=== PATIENT | male | born 1975 | race Caucasian/White ===

== ENCOUNTER 2019-07-25 10:39 | Emergency (ER) | payer MEDICAID ==
[2019-07-25 10:51] VITALS: BP 157/94
--- NOTE | 2019-07-25 11:27 | XRAY Report ---
Reason: r shoulder pain Procedure Date: 07/25/2019 Accession Number: [id number] / [id number] Procedure: XR - Shoulder 3 View RT CPT Code: FULL RESULT: EXAM: RIGHT SHOULDER RADIOGRAPHY EXAM DATE: 07/25/2019 11:14 AM. CLINICAL HISTORY: R shoulder pain. COMPARISON: SHOULDER 3 VIEW LT 07/27/2013 10:13 AM. TECHNIQUE: 3 views. FINDINGS: Bones: Fracture of the distal clavicle with nearly one shaft width superior displacement of the distal fragment relative to the proximal. No gross acromioclavicular joint space malalignment. No other fractures or acute bone lesions. There is a small presumed benign bone island within the humeral head. Joints: The glenohumeral and acromioclavicular joints are normal. Soft tissues: The visualized hemithorax is unremarkable. No soft tissue swelling. IMPRESSION: Displaced, distal clavicular fracture, as above. RADIA
--- NOTE | 2019-07-25 11:32 | ED Physician Documentation ---
PD HPI UPPER EXT INJURY - Stated complaint Stated Complaint: RT SHOULDER PX - Chief complaint Chief Complaint: Ext Problem - History obtained from History obtained from: Patient - History of Present Illness Location: Right, Clavicle, Shoulder Type of injury: Fall Where injury occurred: Home Timing - onset: Yesterday Timing - details: Abrupt onset (he fell to right shoulder and has pain at end of clavicle, worse with ROM of the arm.) Improved by: Rest Worsened by: Moving Associated symptoms: No: Weakness, Numbness Recently seen: Not recently seen Review of Systems Skin: denies: Abrasion (s), Laceration (s) Neurologic: denies: Focal weakness, Numbness, Altered mental status, Head injury PD PAST MEDICAL HISTORY - Past Medical History Cardiovascular: None Respiratory: None Endocrine/Autoimmune: None Musculoskeletal: None Derm: Eczema - Past Surgical History Past Surgical History: Yes General: Appendectomy - Present Medications Home Medications: Ambulatory Orders Medication Instructions Recorded Confirmed Hydrocodone/Acetaminophen [[place] 1 each PO Q6H PRN #15 tablet 07/25/19 5-325 Tablet] Naproxen 500 mg PO BID #20 tablet 07/25/19 - Allergies Allergies/Adverse Reactions: Allergies Allergy/AdvReac Type Severity Reaction Status Date / Time No Known Drug Allergies Allergy Verified 05/27/16 07:44 - Social History Does the pt smoke?: No Smoking Status: Never smoker Does the pt drink ETOH?: Yes Does the pt have substance abuse?: No - Immunizations Immunizations are current?: Yes PD ED PE NORMAL - Vitals Vital signs reviewed: Yes - General General: Alert and oriented X 3, No acute distress, Well developed/nourished - HEENT HEENT: Atraumatic - Neck Neck: Supple, no meningeal sign, No bony TTP, No adenopathy - Derm Derm: Normal color, Warm and dry - Extremities Extremities: Other (distal clavicle right side with tenderness and swelling. Limited ROM of the shoulder due to pain. No skin lac. ) - Neuro Neuro: Alert and oriented X 3, No motor deficit, No sensory deficit Results - Vitals Vitals: Vital Signs - 24 hr 07/25/19 10:42 Temperature 36.7 C Heart Rate 80 Respiratory 18 Rate Blood Pressure 157/94 H O2 Saturation 96 Oxygen O2 Source Room air - Rads (name of study) right shoulder Radiology: Prelim report reviewed (displaced distal clavicle fracture. ), EMP read contemporaneously, See rad report PD MEDICAL DECISION MAKING - ED course Complexity details: reviewed results, considered differential, d/w patient Departure - Departure Disposition: 01 Home, Self Care Clinical Impression: Closed fracture of distal clavicle Qualifiers: Encounter type: initial encounter Fracture alignment: displaced Laterality: right Qualified Code(s): S42.031A - Displaced fracture of lateral end of right clavicle, initial encounter for closed fracture Condition: Stable Record reviewed to determine appropriate education?: Yes Instructions: ED Fx Clavicle Follow-Up: Weston Mai MD [Provider Admit Priv/Credential] - Prescriptions: Hydrocodone/Acetaminophen [[place] 5-325 Tablet] 1 each PO Q6H PRN #15 tablet PRN Reason: Pain Naproxen 500 mg PO BID #20 tablet Comments: Use a sling for comfort of the shoulder with periodic gentle range of motion so it does not stiffen up. No overhead reaching, push pull, heavy lifting for 3 to 4 weeks. The pain will decrease over several days from the initial injury and then it will mosquera together and stop clicking and popping after about 1-1/2 weeks. He will take about a month to heal up. Follow-up with orthopedics in about a week, call tomorrow for an appointment to ensure its healing well enough with this treatment. Typically is sitting alone and time for healing is adequate. Use some anti-inflammatory such as naproxen twice daily for the next 7 to 10 days. Add Tylenol or hydrocodone if needed for pain. I would anticipate needing more pain medicine just in the short-term. Discharge Date/Time: 07/25/19 12:27
[2019-07-25] MEDS ORDERED: IBUPROFEN 600 MG TABLET PO STA (11:53)
[2019-07-25] MEDS ORDERED: HYDROcod/ACETAM 5/325 MG TABLET PO STA (11:53)
== END 2019-07-25 12:27 | disposition home or self-care (01) ==
LOC: ED 10:39
DX: S42.031A Displaced fracture of lateral end of right clavicle, initial encounter for closed fracture (principal); V00.131A Fall from skateboard, initial encounter; Y93.51 Activity, roller skating (inline) and skateboarding; Y92.009 Unspecified place in unspecified non-institutional (private) residence as the place of occurrence of the external cause
CPT/HCPCS: 73030; 99283; A9270

== ENCOUNTER 2021-11-13 16:16 | Emergency (ER) | payer MEDICAID ==
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
--- NOTE | 2021-11-13 18:05 | XRAY Report ---
PROCEDURE: Hand 3 View RT, x-ray INDICATIONS: Trauma TECHNIQUE: 3 views of the hand(s) acquired. COMPARISON: None FINDINGS: Bones: Transverse fractures through the fourth and fifth distal metatarsals with volar angulation of the distal fracture fragment. Old healed fracture noted deep before meals second metatarsal. Soft tissues: No suspicious soft tissue calcifications. IMPRESSION: Angulated fourth and fifth distal metatarsal fractures Old healed second metatarsal fracture Reviewed by: Lewis Ford MD on 11/13/2021 5:04 PM AK Approved by: Lewis Ford MD on 11/13/2021 5:04 PM AKST Station ID: [id number]
[2021-11-13 18:10] VITALS: BP 135/97
== END 2021-11-13 18:13 | disposition home or self-care (01) ==
LOC: ED 16:16
DX: S92.341A Displaced fracture of fourth metatarsal bone, right foot, initial encounter for closed fracture (principal); S92.351A Displaced fracture of fifth metatarsal bone, right foot, initial encounter for closed fracture; V19.9XXA Pedal cyclist (driver) (passenger) injured in unspecified traffic accident, initial encounter; Y93.55 Activity, bike riding
CPT/HCPCS: 99283

== ENCOUNTER 2023-01-18 14:07 | Outpatient (CLI) | payer MEDICAID | END 2023-01-18 23:59 | disposition critical access hospital (66) | LOC: EMS 14:07 | DX: S09.90XA Unspecified injury of head, initial encounter (principal); R41.82 Altered mental status, unspecified; W10.9XXA Fall (on) (from) unspecified stairs and steps, initial encounter | CPT/HCPCS: A0425; A0429 ==

== ENCOUNTER 2023-01-18 14:28 | Emergency (ER) | payer MEDICAID ==
[2023-01-18] MEDS ORDERED: TETANUS/DIPHTHERIA/PERTUSSIS 0.5 ML SYRINGE IM ONE (14:38)
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
--- NOTE | 2023-01-18 16:24 | CT Report ---
PROCEDURE: HEAD WO INDICATIONS: head injury/etoh TECHNIQUE: Noncontrast 4.5 mm thick angled axial sections acquired from the foramen magnum to the vertex. For r adiation dose reduction, the following was used: automated exposure control, adjustment of mA and/or kV according to patient size. COMPARISON: 04/29/2016, 02/24/2016. Correlation is also made with the coming cervical spine CT, 01/19/20. FINDINGS: Image quality: There is streak artifact seen through the skull base. CSF spaces: Basal cisterns a re patent. No extra-axial fluid collections. Ventricles are normal in size and shape. Brain: No midline shift. No intracranial masses or hemorrhage. Briseno-white matter interface is norm al. Skull and face: Calvarium and visualized facial bones are intact, without suspicious lesions. Sinuses: Moderate mucosal thickening is seen within the ethmoid air cells and the visualized maxillar y sinuses. No significant abnormal fluid can be seen within the mastoid air cells. IMPRESSION: No significant intracranial abnormality is seen. Paranasal sinus disease noted. Reviewed by: Dario Dominguez MD on 01/18/2023 3:23 PM JAMES Approved by: Dario Dominguez MD on 01/18/2023 3:23 PM JAMES Station ID: [id number]
--- NOTE | 2023-01-18 16:25 | CT Report ---
PROCEDURE: CERVICAL SPINE WO INDICATIONS: headinjury/etoh TECHNIQUE: Noncontrast 3 mm thick sections acquired from the skull base to the T4 level. Sagittal and coronal r eformats were then constructed. For radiation dose reduction, the following was used: automated exp osure control, adjustment of mA and/or kV according to patient size. COMPARISON: Correlation is made with the accompanying head CT, 01/18/2023 FINDINGS: Image quality: Motion artifact is noted. Bones: No fractures or dislocations. Visualized superior ribs are intact. Soft tissues: Prevertebral soft tissues are normal in thickness. No paravertebral hematomas. No ap ical pneumothoraces. IMPRESSION: No fracture. Reviewed by: Dario Dominguez MD on 01/18/2023 3:23 PM JAMES Approved by: Dario Dominguez MD on 01/18/2023 3:23 PM JAMES Station ID: [id number]
[2023-01-18 17:29] VITALS: BP 110/60
== END 2023-01-18 17:19 | disposition home or self-care (01) ==
LOC: EDUNIT# → ED 14:28
DX: S01.01XA Laceration without foreign body of scalp, initial encounter (principal); W19.XXXA Unspecified fall, initial encounter; Z23 Encounter for immunization; Z71.85 Encounter for immunization safety counseling
CPT/HCPCS: 12004; 36415; 90471; 99284

== ENCOUNTER 2023-06-13 23:20 | Outpatient (CLI) | payer MEDICAID | END 2023-06-13 23:59 | disposition critical access hospital (66) | LOC: EMS 23:20 | DX: R56.9 Unspecified convulsions (principal) | CPT/HCPCS: A0425; A0429; A0999 ==

== ENCOUNTER 2023-06-13 23:40 | Emergency (ER) | payer MEDICAID ==
[2023-06-14 00:12] LABS: BASOPHILS # (AUTO) 0.1 10^3/uL (0.0-0.1); EOSINOPHILS # (AUTO) 0.3 10^3/uL (0.0-0.7); EOSINOPHILS % (AUTO) 5.4 %; HCT - HEMATOCRIT 42.1 % (42.0-52.0); HGB - HEMOGLOBIN 14.5 g/dL (14.0-18.0); LYMPHOCYTES % (AUTO) 20.9 %; MEAN CORPUSCULAR HEMOGLOBIN 33.4 pg (27.0-31.0); MEAN CORPUSCULAR HGB CONC 34.4 g/dL (32.0-36.0); MEAN PLATELET VOLUME 10.5 fL (7.4-11.4); MONOCYTES # (AUTO) 0.7 10^3/uL (0.0-1.0); MONOCYTES % (AUTO) 14.1 %; NEUTROPHILS # (AUTO) 2.9 10^3/uL (1.5-6.6); NEUTROPHILS % (AUTO) 58.2 %; PLT - PLATELET COUNT 114 10^3/uL (130-450); RED BLOOD COUNT 4.34 10^6/uL (4.70-6.10); RED CELL DISTRIBUTION WIDTH 14.6 % (12.0-15.0)
[2023-06-14 00:51] LABS: ALBUMIN 4.3 g/dL (3.2-5.5); ALBUMIN/GLOBULIN RATIO 1.5 (1.0-2.2); BILIRUBIN,TOTAL 1.4 mg/dL (0.2-1.0); CALCIUM 9.4 mg/dL (8.5-10.3); CREATININE 0.6 mg/dL (0.6-1.3); POTASSIUM 3.6 mmol/L (3.5-4.5); TOTAL PROTEIN 7.1 g/dL (6.4-8.9)
--- NOTE | 2023-06-14 02:28 | ED Physician Documentation ---
PD HPI SEIZURE - Stated complaint Stated Complaint: SEIZURE/ETOH - Chief complaint Chief Complaint: Neuro - History obtained from History obtained from: Patient, Friend - Additional information Additional information: BIBA. HPI from patient, friend (in ED at bedside), and EMS. Patient had a seizure tonight, approximately 20-30 minutes EXTENSION EDGER, lasted 2-3 minutes. He says he had been having visual flashes, episodically, over past 1-2 days. earlier this evening, he was having visual pulsations of various colors when he lost consciousness with no other warning, next aware that EMS was transporting him to ED. He says he has never had a seizure before. Girlfriend says she witnessed the event. She says she did not fall, did not witness any injury. She says he suddenly exhibited full-body stiffness, eyes "rolled back", and his arms were stiff and above his head. She did not witness any clonic jerking movements. She says this lasted up to a minute , followed by patient suddenly being limp and quiet, snoring loudly. He was unresponsive during the stiff phase as well as 10-15 minutes of the phase when he appeared to be sleeping heavily; he eventually and gradually became awake, alert, responsive, and by the time he gets to the ED, he is AAOx3. Patient tells me he drinks alcohol on a daily basis, typically 10-12 beers per day. He has not drank alcohol since yesterday. Review of Systems Constitutional: reports: Reviewed and negative Cardiac: reports: Reviewed and negative Respiratory: reports: Reviewed and negative GI: reports: Reviewed and negative Neurologic: reports: Seizure. denies: Generalized weakness, Focal weakness, Numbness, Confused, Altered mental status, Headache, Head injury PD PAST MEDICAL HISTORY - Past Medical History Past Medical History: Yes Cardiovascular: None Respiratory: None Neuro: None, Other Endocrine/Autoimmune: None GI: None : None HEENT: None Psych: None Musculoskeletal: None Derm: Eczema Other Past Medical History: NEW ONSET SEIZURES. ETOH ABUSE - Past Surgical History Past Surgical History: Yes General: Appendectomy - Present Medications Home Medications: Ambulatory Orders Medication Instructions Recorded Confirmed Acetaminophen [Tylenol] 650 mg PO Q6H PRN #30 tablet 11/13/21 Ibuprofen [Motrin] 800 mg PO Q8H PRN #30 tablet 11/13/21 Oxycodone HCl [Roxicodone] 5 mg PO Q6HR #10 tablet 11/13/21 - Allergies Allergies/Adverse Reactions: Allergies Allergy/AdvReac Type Severity Reaction Status Date / Time No Known Drug Allergies Allergy Verified 01/18/23 14:39 - Social History Does the pt smoke?: No Smoking Status: Never smoker Does the pt drink ETOH?: Yes Does the pt have substance abuse?: No Substance Use and Type: Marijuana - Immunizations Immunizations are current?: Yes - POLST Patient has POLST: No PD ED PE NORMAL - Vitals Vital signs reviewed: Yes - General General: Alert and oriented X 3, No acute distress, Well developed/nourished - HEENT HEENT: Atraumatic, PERRL, EOMI, Moist mucous membranes, Other (anterior tip of tongue (left) is echymotic, focal swelling) - Neck Neck: Supple, no meningeal sign - Cardiac Cardiac: RRR, No murmur, No gallop, No rub - Respiratory Respiratory: No respiratory distress, Clear bilaterally - Abdomen Abdomen: Soft, Non tender - Extremities Extremities: Other (BUE tremulousness that improves with rest) - Neuro Neuro: Alert and oriented X 3, chief counsel 2-12 intact, No motor deficit, No sensory deficit, Normal speech Eye Opening: Spontaneous Motor: Obeys Commands Verbal: Oriented GCS Score: 15 Results - Vitals Vitals: Oxygen O2 Source Room air - Labs Labs: Laboratory Tests 06/14/23 06/14/23 06/14/23 00:00 00:00 00:25 WBC 5.0 RBC 4.34 L Hgb 14.5 Hct 42.1 MCV 97.0 H MCH 33.4 H MCHC 34.4 RDW 14.6 Plt Count 114 L MPV 10.5 Neut # (Auto) 2.9 Lymph # (Auto) 1.0 L Glasscock # (Auto) 0.7 Eos # (Auto) 0.3 Baso # (Auto) 0.1 Absolute Nucleated RBC 0.00 Nucleated RBC % 0.0 Sodium 132 L Potassium 3.6 Chloride 98 L Carbon Dioxide 23 Anion Gap 11.0 BUN 7 Creatinine 0.6 Estimated GFR (MDRD) 143 Glucose 111 H Calcium 9.4 Total Bilirubin 1.4 H AST 74 H ALT 42 Alkaline Phosphatase 81 Total Protein 7.1 Albumin 4.3 Globulin 2.8 Albumin/Globulin Ratio 1.5 Lipase 49 Ethyl Alcohol < 10.0 PD Medical Decision Making - ED course Complexity details: reviewed results, re-evaluated patient, considered differential, d/w patient ED course: No remarkable nor concerning findings on tonight's tests (CBC, ER abdominal panel). Serum ethanol level is undetectably low, as would be expected in alcohol withdrawal. I d/w patient diagnosis, prognosis. I recommended dose of lorazepam now and then observation in ED (particularly looking for tremulousness to improve or stop), but patient says he is always tremulous and does not think it has anything to do with the seizure. He is calm, cooperative, friendly, and AAOx3; he insists he is ready to be discharged. he declines any medications at this time despite voicing understanding that he is at high risk of having another seizure without them. He also is vehemently (but politely) declining rx for any benzodiazepine, tells me "the prescription will just sit on top of my fridge, doc. I won't take it." Again, he elaborates that he just does not think he needs/will need them. He says "I'll definitely come back if I have another one of these" (seizures); I explained that LOC accompanies this type of seizure so he would not be able to call 911 himself. He says someone else can and he doubts it will happen again. He also says he will seek follow up with PMD. Lastly, he tells me he does not drive motor vehicles. He says he bicycle-rides everywhere. Nonetheless, I advised him to avoid riding his bicycle until cleared to do so by his PMD or a neurologist; I explained to him that seizing while riding a bicycle could result in as well as harm to others should he hit someone else or a motor vehicle swerve to avoid him. Departure - Departure Disposition: 01 Home, Self Care Clinical Impression: Alcohol withdrawal seizure Qualifiers: Complication of substance-induced condition: uncomplicated Qualified Code(s): F10.930 - Alcohol use, unspecified with withdrawal, uncomplicated Condition: Good Instructions: ED Seizure Alcohol Withdrawal Comments: The description of tonight's event, combined with your heavy/regular alcohol use, is highly suggestive of alcohol withdrawal seizure. You have declined medications that I have offered which can help with symptoms of alcohol withdrawal as well as reduce the likelihood of having another seizure. I highly recommend that you seek counseling for your alcoholism and I would encourage you to consider a rehab/detox facility. One such facility is [facility], located in [place]. The contact number is [phone]. You can contact them at any time to discuss potential treatment at that facility. Forms: PCP List Discharge Date/Time: 06/14/23 03:30
[2023-06-14 03:16] VITALS: BP 124/101; O2SAT 96
== END 2023-06-14 03:30 | disposition home or self-care (01) ==
LOC: EDUNIT# → ED 23:40
DX: F10.930 Alcohol use, unspecified with withdrawal, uncomplicated (principal); Y90.0 Blood alcohol level of less than 20 mg/100 ml; R56.9 Unspecified convulsions
CPT/HCPCS: 36415; 80053; 80320; 83690; 85025; 99283

== ENCOUNTER 2024-01-21 14:18 | Emergency (ER) | payer MEDICAID ==
[2024-01-21] MEDS: oxyCODONE 5 MG TABLET PO STA (15:03)
--- NOTE | 2024-01-21 15:09 | ED Physician Documentation ---
History of Present Illness - Stated complaint Stated Complaint: RT ARM INJ - Chief complaint Chief Complaint: Trauma Ext - History obtained from History obtained from: Patient - History of Present Illness Timing: Last night Pain level max: 8 Pain level now: 8 - Additonal information Additional information: 48-year-old male presents to the emergency department with right shoulder pain. Occurred last night. He states he was in a parking lot and jumped off of a curb when he fell and landed on his right shoulder and right ribs. No head injury. No head, neck, back pain. No numbness or tingling. Noted bruising and swelling to the right shoulder today so came in for evaluation. Has not taken anything for pain. Not on blood thinners. Review of Systems Constitutional: denies: Fever, Chills Respiratory: denies: Cough GI: denies: Nausea, Vomiting, Diarrhea Skin: denies: Rash Musculoskeletal: denies: Neck pain, Back pain Neurologic: denies: Focal weakness, Numbness, Headache, Head injury, LOC PD PAST MEDICAL HISTORY - Past Medical History Past Medical History: No Cardiovascular: None Respiratory: None Neuro: None, Other Endocrine/Autoimmune: None GI: None : None HEENT: None Psych: None Musculoskeletal: None Derm: Eczema - Past Surgical History Past Surgical History: Yes General: Appendectomy - Present Medications Home Medications: Ambulatory Orders Medication Instructions Recorded Confirmed Acetaminophen [Tylenol] 650 mg PO Q6H PRN #30 tablet 11/13/21 Ibuprofen [Motrin] 800 mg PO Q8H PRN #30 tablet 11/13/21 Oxycodone HCl [Roxicodone] 5 mg PO Q6HR #10 tablet 11/13/21 oxyCODONE [Roxicodone] 5 - 10 mg PO Q6H PRN #14 tablet 01/21/24 MDD 6 - Allergies Allergies/Adverse Reactions: Allergies Allergy/AdvReac Type Severity Reaction Status Date / Time No Known Drug Allergies Allergy Verified 01/21/24 14:21 - Social History Does the pt smoke?: No Smoking Status: Never smoker Does the pt drink ETOH?: Yes Does the pt have substance abuse?: No Substance Use and Type: Marijuana - Immunizations Immunizations are current?: Yes - POLST Patient has POLST: No PD ED PE NORMAL - Vitals Vital signs reviewed: Yes - General General: Alert and oriented X 3, No acute distress - HEENT HEENT: Atraumatic (No scalp hematomas, no abrasions. No palpable skull fractures), PERRL, Ears normal, Moist mucous membranes, Pharynx benign - Neck Neck: Supple, no meningeal sign - Cardiac Cardiac: RRR, Strong equal pulses - Respiratory Respiratory: No respiratory distress, Clear bilaterally - Abdomen Abdomen: Soft, Non tender, Non distended - Back Back: No spinal TTP - Derm Derm: Warm and dry - Extremities Extremities: Other - Neuro Neuro: Alert and oriented X 3 - Psych Psych: Normal mood, Normal affect - Free text exam Free text exam: Tender to palpation over the right glenohumeral joint, there is bruising present on the lateral aspect of the upper arm. Neurovascular intact. Otherwise no rmal examination of the right elbow, right lower arm, wrist, hand. Axillary nerve intact. No clavicle or scapular tenderness. There is some mild tenderness over the right lateral ribs as well. No crepitus. No ecchymosis. Results - Vitals Vitals: Vital Signs - 24 hr 01/21/24 01/21/24 01/21/24 14:22 14:41 16:02 Temperature 36.8 C Heart Rate 120 H 100 88 Respiratory 18 20 18 Rate Blood Pressure 150/100 H 142/88 H O2 Saturation 100 95 100 Oxygen O2 Source Room air - Rads (name of study) Right shoulder x-ray Relevant Findings:: Final report received, See rad report Right rib x-ray Relevant Findings:: Final report received, See rad report PD Medical Decision Making - ED course Complexity details: reviewed results, re-evaluated patient, considered differential, d/w patient ED course: 48-year-old male status post a fall yesterday. Has a comminuted right proximal humerus fracture on x-ray. Placed in a sling. Pain medications given. Neurovascular intact. No evidence of rib fracture. Did not strike his head. A xillary nerve intact. Will have him follow-up with orthopedics for further care. No abrasions or lacerations. No pneumothorax. Patient counseled regarding signs and symptoms for which I believe and urgent re-evaluation would be necessary. Patient with good understanding of and agreement to plan and is comfortable going home at this time This document was made in part using voice recognition software. While efforts are made to proofread this document, sound alike and grammatical errors may occur. Departure - Departure Disposition: 01 Home, Self Care Clinical Impression: Greater tuberosity of humerus fracture Qualifiers: Encounter type: initial encounter Fracture type: closed Fracture alignment: displaced Laterality: right Qualified Code(s): S42.251A - Displaced fracture of greater tuberosity of right humerus, initial encounter for closed fracture Condition: Good Instructions: ED Fx Upper Ext Follow-Up: [facility] [Provider Group] - Within 1 week Prescriptions: oxyCODONE [Roxicodone] 5 - 10 mg PO Q6H PRN #14 tablet MDD 6 PRN Reason: pain Comments: Please follow-up with orthopedics for further care. You have a fracture of the greater tuberosity of the right humerus. You are placed in a sling today. You need to stay in the sling until released by orthopedics. Please call tomorrow for a follow-up appointment. Your prescriptions were sent to [facility] in [place]. I am prescribing a short course of narcotic pain medication for you. These are potentially dangerous and addictive medications that should be used carefully. These medications may constipate you. Take an [id number] stool softener (docusate) twice daily with plenty of water while taking these medications. If you go 24 hours without a bowel movement, take [id number] miralax, per package instructions. Do not drink or drive while taking these medications. If you received narcotic or sedating medications while in the emergency department, do not drive for 24 hours. Store this medication in a safe, secure place and out of reach of children. It is a violation of federal law to give or sell this medication to another person or to use in a manner other than prescribed. The ED will not refill narcotic prescriptions, including prescriptions lost or stolen. To dispose of unwanted medications: 1. [facility] [address] in [place] has a medication drop box. They accept prescription medications (in pill form) Monday through Monday 9:00 a.m. to 5:00 p.m. 2. The [facility] [employer] accepts prescription medications (in pill form only) for disposal year round. Call for more information. 3. Contact the [facility] for the next [facility] sponsored prescription drug collection event. , [phone], or [phone]; Forms: PCP List Discharge Date/Time: 01/21/24 15:50
--- NOTE | 2024-01-21 16:02 | XRAY Report ---
PROCEDURE: Ribs w/PA Chest 3+V RT INDICATIONS: fall, rib pain TECHNIQUE: 2 views of the ribs were acquired, along with a single view chest. COMPARISON: None. FINDINGS: Surgical changes and devices: None. Bones and chest wall: No fractures or dislocations. No suspicious bony lesions. Overlying soft tis sues appear unremarkable. Lungs and pleura: No pleural effusions or pneumothorax. Lungs appear clear. Mediastinum: Mediastinal contours appear normal. Heart size is normal. IMPRESSION: No displaced rib fracture or pneumothorax. Reviewed by: Lewis Frod MD on 01/21/2024 3:00 PM JAMES Approved by: Lewis Ford MD on 01/21/2024 3:00 PM [facility]DT Station ID: [id number]
--- NOTE | 2024-01-21 16:03 | XRAY Report ---
PROCEDURE: Shoulder 2+V RT INDICATIONS: fall, R shoulder pain TECHNIQUE: 3 views of the shoulder were acquired. COMPARISON: None FINDINGS: Bones: Comminuted proximal humeral fracture. The articular surface appears preserved. No dislocation. Soft tissues: No suspicious soft tissue calcifications. IMPRESSION: Comminuted proximal humeral fracture Reviewed by: Lewis Ford MD on 01/21/2024 3:02 PM [facility]DT Approved by: Lewis Ford MD on 01/21/2024 3:02 PM AKDT Station ID: [id number]
[2024-01-21 16:05] VITALS: BP 142/88; O2SAT 100
== END 2024-01-21 15:50 | disposition home or self-care (01) ==
LOC: ED 14:18
DX: S42.251A Displaced fracture of greater tuberosity of right humerus, initial encounter for closed fracture (principal); W17.89XA Other fall from one level to another, initial encounter; Y92.481 Parking lot as the place of occurrence of the external cause; Y93.39 Activity, other involving climbing, rappelling and jumping off
CPT/HCPCS: 71101; 73030; 99284; A9270